=== PATIENT | male | born 1955 | race Caucasian/White ===

== ENCOUNTER 2024-12-27 22:31 | Inpatient (IN) | payer OTHER, SELFPAY ==
[2024-12-27] VITALS (7 sets, daily range): BP systolic 94–146; BP diastolic 62–99; BMI 24.2
--- NOTE | 2024-12-27 20:36 | ED.GENMED ---
History of Present Illness
General
Chief Complaint: Chest Pain
Source: patient and family
Time Seen by Provider: 12/27/24 20:36
History of Present Illness
History of Present Illness:
69-year-old male with a history of hypercholesterolemia presents emergency department after developing pain across his lower chest and 6 PM described as 'heartburn'. Pain has been constant despite taking baking soda at home. He denies having this
pain before. The pain is without radiation, exacerbating, relieving factors. He denies radiation or pain in his back neck jaw head or upper chest. He denies dyspnea, diaphoresis, nausea, vomiting, leg swelling. Patient denies prior history of
coronary disease
Past History
Past History
ED Past Medical History: Hypercholesterolemia and Other (Prostate cancer)
ED Past Surgical History: Urological
Social History
Tobacco: Smoker
Alcohol: None
Drug: None
Personal:
Living: with family
Phy Exam
Physical Exam
Physical Exam:
GENERAL: Alert , in no apparent distress
EYE: pupils equal and reactive
NECK: Supple, no significant adenopathy.
ENT: o/p clr, mmm.
CARDIAC: Regular rate and rhythm .
LUNGS: Clear breath sounds bilaterally, no acute respiratory distress, no wheezes/rales/rhonchi
ABDOMEN: Soft, without focal tenderness, no r/g, no cvat
NEUROLOGICAL: Alert and oriented, no focal neuro deficits
SKIN: Warm and dry, skin intact.
MUSCULOSKELETAL: No edema, well perfused.
PSYCH: Normal and appropriate interaction.
Scores
Heart Score for Chest Pain Patients
STEMI patient?: Yes
Course
Orders/Labs/Results
Orders:
Orders
12/27/24 20:15
Electrocardiogram (*1) Urgent
Reason for Study: Chest Pain
EKG- Treatment ONCE
12/27/24 20:35
Basic Metabolic Panel Urgent
Complete Blood Count/With Diff Urgent
PT/INR [Prothrombin Time] Urgent
Troponin I Urgent
12/27/24 20:38
Nitroglycerin Sublingual [Nitrostat (Sublingual)] 0.4 mg SL NOW STA
12/27/24 20:49
Nitroglycerin Sublingual [Nitrostat (Sublingual)] 0.4 mg SL NOW STA
12/27/24 21:06
Aspirin Chewable [Low Strength Aspirin] 324 mg .ROUTE .STK-MED ONE
Heparin 5,000 units .ROUTE .STK-MED ONE
Ticagrelor [Brilinta] 180 mg .ROUTE .STK-MED ONE
12/27/24 22:20
Admit Patient As Directed
Co-Sign Provider:
Level of Care: Inpatient admission
Assign to:: IVU
Physician / Group: Aaron
Diagnosis: STEMI
Reason for Hospitalization: STEMI
Expected length of stay greater than two midnights?: No
ELOS- Estimated Length of Stay in days: 2
I certify the patient meets the requirements for IP care: Yes
Electrocardiogram (*1) Urgent
Reason for Study: Other
Other Reason for Exam: s/p intervention
Code Status As Directed
Resuscitation Status: Full Code
CARDIAC REHAB CONSULT Routine
Co-Sign Provider:
Cardiac Rehab & Exercise Evaluation Referral
Type of Cardiac Rehab Referral: Outpatient
Diagnosis: STEMI
Date of Diagnosis/Surgery: 12/27
Referring Provider: Other Provider
Other Referring Provider: Aaron
[facility] Intensive Cardiac Rehab Exercise Prescription
The above named person is capable of participating in an intensive cardiac rehab exercise therapy program
under the guidance of the [facility] cardiac rehab staff, outpatient registered dieticians and
supervision of a physician.
ICR Program Objectives:
Provide supervised exercise, cooking classes, nutritional counseling and healthy mind-set education to
improve the function/symptom free work capacity to an optimal level as well as control risk factors to
prevent the progression of heart disease. During the supervised exercise therapy session some or all of
the following may be included in the cardiac rehab session: ECG telemetry, BP, heart rate, rate of
perceived exertion, symptoms/tolerance, cholesterol testing and education. Exercise modalities may
include: treadmill, upright or recumbent bike, spin bike, rowing machine, elliptical, recumbent
elliptical, arm-bike machine, recumbent stepper and free weights.
Intensity:
All CR staff will use ACSM guidelines: Most patients will exercise in the following range: Heart Rate
[place] range of 40% to 80% & Oxygen Uptake reserve range 40-80% (VO2R). Peak heart rate and VO2 are
derived from the cardiac rehab submaximal graded exercise test at RPE of 13/14 out of 20. Initial
intensity range: RPE 11 to 14/20 and may expand to 11 to 16/20.
Duration & Frequency:
If appropriate the patient will be progressed up to 40 minutes of exercise therapy. Patients will be
instructed to come three times a week in cardiac rehab and at a home/other gym to achieve optimal
physical activity/exercies i.e. 4000-10,000 steps per day.
Education:
The patient will receive one-on-one education during their orientation, initial exercise evaluation, ITP
reassessments and discharge session. Each exercise session will also include an education class (30-40
minutes).
Acetaminophen [Tylenol] 650 mg PO Q4HPRN PRN
Activity As Directed
Activity Level: Out of Bed- Chair
Comment: bed/chair rest for 2 hours then out of bed ad abhi
Eeo Officer Procedure As Directed
Cardiac Cath Procedure: percutaneous coronary intervention
Intake/ Output As Directed
Frequency: Per unit guidelines
Notify MD As Directed
Notify physician if: immediately for chest pain or bleeding from access site(s)
Radial Artery Hemostasis Method As Directed
Instructions:: 3 mL out at 2 hour posts placement of band
3 mL out at 2 1/2 hours post placement of band
3 mL out at 3 hours post placement of band
Off at 3 1/2 hours post placement of band
If any oozing or hemotoma occurs:: re-inflate band and call provider
Site Checks As Directed
Check access site for bleeding/hematoma: Yes
Comment: on arrival, Q15min x4, Q30min x2, Q1 hr x2, Q2 hr x2, Q4 hr or per
protocol
Vascular Checks As Directed
Location: distal to access site - pulse check
Frequency: Other
Comment: on arrival, Q15min x4, Q30min x2, Q1 hr x2, Q2 hr x2, Q4 hr or per protocol
Vital Signs As Directed
Frequency: Other
Additional Instructions:: on arrival, Q15min x4, Q30min x2, Q1 hr x2, Q2 hr x2, then Q4 hr or per unit
protocol
PRN Pain Medication Management As Directed
May give lesser potent ordered pain med per pt: Yes
preference::
Protocol:: Medication orders for pain may be administered in a
manner that supports deferring to patient preference
when the pt is:
- Requesting an ordered lesser potent pain medication.
Least to most potent pain medications are defined
as: acetaminophen < NSAID < tramadol < opioids
(morphine, oxycodone, hydromorphone).
- Requesting a lesser dose of the same medication IF
ORDERED.
- Requesting a less intrusive route of administration
if both routes are prescribed by the provider (PO <
IV).
12/27/24 22:21
Glycohemoglobin (HgbA1c) Routine
DX Deep Vein Thrombosis Video Routine
12/27/24 22:30
0.9% Sodium Chloride 1000 ml [Nss] 1,000 ml IV PER PROTOCOL
Infusion rate in mL/kg/hr:: 1.5
Infusion rate in mL/hr:: 118
Duration of infusion (hours):: 5
12/27/24 23:00
Atorvastatin [Lipitor] 40 mg PO QPM
Metoprolol Xl [Toprol Xl] 12.5 mg PO BID
12/28/24 02:28
Basic Metabolic Panel IN AM
Cardiovascular Evaluation IN AM
Complete Blood Count/With Diff IN AM
Troponin I Q6H
12/28/24 06:00
Electrocardiogram (*1) IN AM
Reason for Study: Other
Other Reason for Exam: s/p intervention
Cholesterol Lowering
At Your Request: Full Participation
Does patient need a safe tray?: No
Cholesterol Lowering: Sodium, 2 Gram
12/28/24 08:00
Aspirin Chewable [Low Strength Aspirin] 81 mg PO DAILY
Lisinopril [Zestril] 5 mg PO DAILY
Ticagrelor [Brilinta] 90 mg PO BID
12/28/24 18:00
Enoxaparin Sodium [Lovenox] 40 mg SC QPM
Abnormal Lab Results
12/27/24 12/27/24 12/27/24
20:35 21:15 21:41
RBC 4.55 L 10^6/uL
(4.70-6.10)
MCH 32.1 H pg
(27.0-31.0)
Absolute Monos (auto) 0.7 H 10^3/uL
(0.1-0.6)
Chloride 108 H mmol/L
(98-107)
BUN 32 H mg/dl
(9-20)
Glucose 154 H mg/dl
(70-99)
POC ACT Low Range 380 H Seconds 274 H Seconds
(116-155) (116-155)
12/27/24 20:35
12/27/24 20:35
Vital Signs
Initial and Last Documented VS:
Initial Vital Signs
Pulse Resp BP Pulse Ox
82 20 146/99 97
12/27/24 20:23 12/27/24 20:23 12/27/24 20:23 12/27/24 20:23
Last Documented Vital Signs
Temp Pulse Resp BP Pulse Ox
99.0 F 75 17 93/65 96
12/29/24 11:42 12/29/24 11:45 12/29/24 11:42 12/29/24 11:34 12/29/24 11:42
*Pulse Oximetry
SaO2: 97
Oxygen Mode of Delivery: Room air
Patient hypoxic: no
*Critical Care Note
Total Time (30-74mins, 75-104mins- exclusive of procedures): Not Applicable
Update Note
Update Note:
Patient presents to the Emergency Department with ___chest pain
Number and Complexity of Problems Addressed at the Encounter
� Chronic conditions affecting care:
� Acute Exacerbation and/or Progression of Chronic Illness:
� Differential Diagnosis includes: But not limited to MT, ACS, pleurisy, musculoskeletal pain, gallbladder disease, PTX, etc. etc.
Amount and/or Complexity of Data to be Reviewed and Analyzed
� I performed an independent evaluation of and my interpretation is:
EKG: Read by me, ST elevation noted in inferior leads, normal sinus rhythm
CT:
Xrays:
Laboratory Studies: Pending at time of disposition
Other:
� Review of other/old records reveals:
� Clinical information was obtained by an independent historian: and daughter who are at bedside
� Prescriptions/Medications Considered but not given:
� Further testing considered but not performed:
Risk of Complications and/or Morbidity or Mortality of Patient Management
� Social determinants of health affecting care:
� Discussion with other providers (PCP, Hospitalists, Consultants, etc):
� Escalation of care including admission/observation vs risk of discharge considered: Patient presented to ED from triage. Triage nurse alerted me promptly as patient was brought to room 40, I then internal controls analyst had distance learning unit leader called a
STEMI alert and proceeded to care for the patient. Case just discussed with Dr. Wallis, ECG shared with him. He agrees with management thus far, no further recommendations, will be bedside within the next 10 minutes. Patient and family updated.
Patient has gotten nitro x 1 without change in 5 out of 10 pain. RN to give second dose of nitro, blood pressure remained stable, IV fluids hanging
ED Attending Note
-
Portions of this chart may have been created with voice recognition software.� Occasional wrong word or��sound alike� substitutions may have occurred due to the inherent limitations of voice recognition software.
Discharge Plan
Departure
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
Date of Disposition: 12/27/24
Time of Disposition: 20:36
Admit to: geophysical laboratory supervisor
Admit to doctor: aaron
Presentation/result/management discussed w/ accepting MD/DO: aaron
Discharge Problem:
ST elevation (STEMI) myocardial infarction
Interventions
Interventions:
*Risk Screen - Suicide Last Done: 12/27/24 20:23
*General Assessment Last Done: 12/27/24 20:23
*Neglect/Abuse Screening Last Done: 12/27/24 20:23
*ED- Fall Risk Assessment Last Done: 12/27/24 20:32
*ED COVID-19 Vaccine History Last Done: 12/27/24 20:32
*Nursing Disposition Last Done: 12/27/24 20:51
ED- Cardiac Assessment Last Done: 12/27/24 20:41
Discharge Date and Time
Discharge Date/Time: 12/27/24 20:51
[2024-12-27] MEDS: NITROSTAT (SUBLINGUAL) 0.4 MG SL (20:38)
[2024-12-27 20:45] LABS: Hematocrit 40.9 % (39.0-52.0); Hemoglobin 14.6 g/dL (13.0-18.0); Mean Corp Hgb Conc. 35.7 g/dL (33.0-37.0); Mean Corpuscular Volume 89.9 fL (80.0-94.0); Nucleated Red Blood Cells % 0 % (-); Platelet Count 229 10^3/uL (130-400); Red Cell Dist. Width 12.6 % (11.5-14.5)
[2024-12-27 20:54] LABS: INR 0.96; PT 13.1 Sec (11.4-14.6)
[2024-12-27 21:02] LABS: Blood Urea Nitrogen 32 mg/dl (9-20); Calcium 9.0 mg/dl (8.4-10.2); Carbon Dioxide 25 mmol/L (22-30); Chloride 108 mmol/L (98-107); Estimated Creatinine Clearance 108 ml/min; Glucose 154 mg/dl (70-99); Sodium 138 mmol/L (135-145); eGFR > 60.00
[2024-12-27 21:09] LABS: Troponin I < 0.012 ng/ml
[2024-12-27 21:22] LABS: ACT-LR - POC 380 Seconds (116-155)
[2024-12-27 21:49] LABS: ACT-LR - POC 274 Seconds (116-155)
--- NOTE | 2024-12-27 22:20 | ITS.CL.PN ---
Strategic Planning Director - Procedure Note
Procedure
Procedure Note:
CARDIAC CATHETERIZATION REPORT
Date of Procedure: 12/28/2019
Referring: Dr. Maribeth Joseph MD
Indication: Inferior STEMI
PROCEDURE(S)
1. left heart catheterization
2. coronary angiography
3. IVUS LCx
4. PCI with DONG to LCx
ACCESS: 6F right radial artery (closure: radial band)
CATHETERS
1. 6F JR4
2. 6F EBU3.75 guide
MODERATE SEDATION: 6 minutes of moderate sedation was utilized. An independent faculty i on call medical assistant was present to assist with and help manage the patient's level of consciousness and physiologic status.
HEMODYNAMIC DATA
LV 113/9 (EDP 19) mmHg
AO 111/77 (mean 88) mmHg
CORONARY ANGIOGRAPHY
Dominance: Right
LM: Large, normal
LAD: Large vessel giving rise to a large branching D1, small D2, and small D3. There is a focal 50% stenosis at the ostium of D1 and otherwise mild nonobstructive disease.
LCx: Large vessel giving rise to a small OM1, large OM2, and moderate caliber branching LPL. There is a focal 50% stenosis in the mid LCx just after OM2, a sequential 90% stenosis in the mid LCx, and a subtotal occlusion of the LPL branch just
before its branch. There is VERN I flow in the distal LPL branch.
RCA: Large vessel giving rise to a large RPDA, large RPL1, and small RPL2. The vessel is patulous with diffuse but nonobstructive disease throughout the proximal vessel.
PCI with DONG to LCx
Heparin was given to achieve ACT greater than 300. A Runthrough coronary wire was placed in the distal left posterolateral branch. Initial lesion preparation was performed with a 2.0 mm semicompliant balloon with alevism of distal flow. Stenting
was performed with a 2.25 x 23 mm Xience Skypoint DONG from the branch point of the LPL back into the mid circumflex covering the high-grade circumflex lesion. IVUS was performed demonstrating slight protrusion of the distal stent edge into the wired
branch but no evidence of vessel dissection. The mid circumflex itself was a 2.75 mm vessel. Thus, post dilation was performed of the entire stent sparing the distal edge with a 2.75 mm NC balloon taken to 16 leslye distally and 17 leslye in the proximal
stent edge. At this point the lesion just distal to the takeoff of the large OM2 appeared angiographically more severe and the decision was made to cover this with an overlapping 2.75 x 12 Xience Skypoint DONG deployed at 16 leslye followed by post
dilation of the stent overlap back to the proximal stent edge with the 2.75 mm NC balloon at 17 leslye. Final IVUS was performed demonstrating appropriate stent sizing, apposition, and expansion, with slight protrusion of the proximal stent edge into
the proximal circumflex by 1-2 apple. The stent at this proximal edge was mildly undersized but apposed to plaque thus no further postdilation was performed. Final angiographic result was outstanding with VERN-3 flow in all distal branches. The wire
and guide were removed and a TR band placed.
RADIATION: dose 1362 mGy; DAP 100 Gy*cm2; fluoroscopy time 20.9 min
CONCLUSIONS
1. Coronary artery disease as described with culprit subtotal occlusion of the LPL.
2. Mildly elevated LV filling pressure and no aortic stenosis
3. Successful PCI with DONG x 2 to the LPL back to mid circumflex.
RECOMMENDATIONS
1. Dual antiplatelet therapy with aspirin and ticagrelor for 1 year
2. High intensity statin and additional lipid-lowering therapies to achieve LDL less than 55
3. Beta-torie titrated to heart rate goal 60-70
4. Low dose ACEi in AM as tolerate by BP
5. Trend troponin to peak, check lipids, check A1c
6. TTE in AM, additional GDMT as indicated though doubt significant LV dysfunction
7. Smoking cessation and optimization of lifestyle and risk factor modification
8. Cardiac rehab
Signed: Sai Walker MD, PhD
--- NOTE | 2024-12-27 22:25 | CON.CAR ---
Consultation
Consultation Request
Date/Time Consultation Requested: 12/27/24 9 PM
Date/Time Consultation Performed: 12/27/24 9 PM
Requesting Provider: Dr. Maribeth Joseph
Performing Provider: Dr. Stalin Walker
Reason for Consultation: STEMI
Medical History
-
Chief Complaint: STEMI
History of Present Illness:
69-year-old male with a history of hypercholesterolemia presents emergency department after developing pain across his lower chest and 6 PM described as 'heartburn'. Pain has been constant despite taking baking soda at home. He denies having this
pain before. The pain is without radiation, exacerbating, relieving factors. He denies radiation or pain in his back neck jaw head or upper chest. He denies dyspnea, diaphoresis, nausea, vomiting, leg swelling. Patient denies prior history of
coronary disease.
Presented on own to triage where ECG demonstrated inferior MARISEL.
He was treated with ASA 325, ticagrelor 180, heparin bolus. SL nitro x2 was given without resolution of pain.
Past Medical History
Past Medical History: Hypercholesterolemia
Past Surgical History: None
Social History
Tobacco: Smoker
Alcohol: Occasional
Allergies / Home Medications
Allergy/AdvReac Type Severity Reaction Status Date / Time
No Known Allergies Allergy Unverified 12/27/24 20:18
Review of Systems
-
History Source: Patient
All other systems: Negative unless noted
Cardiac: Chest Pain
Physical Exam
Vital Signs
Temp Pulse Resp BP Pulse Ox
37.3 C 83 20 112/84 95
12/27/24 20:34 12/27/24 20:45 12/27/24 20:23 12/27/24 20:45 12/27/24 20:45
Lab Results
12/27/24 20:35
12/27/24 20:35
Troponin I < 0.012 ng/ml 12/27/24 20:35
Physical Exam
General: Well Developed and Well Nourished
HEENT: Normocephalic
Respiratory: Clear
Cardiac: S1/S2 and Regular Rhythm
Skin: Warm
Neuro: AO x 3
Psych: Other (uncomfortable)
Impression / Plan
-
Patient presents with symptoms and ECG change consistent with inferior STEMI. He has risk factors including smoking and HLD. Fortunately presented rapidly within 2 hours onset of symptoms. Appears hemodynamically stable though uncomfortable. Will
proceed with emergent cardiac catherization and PCI as indicated. Appropraite pre-medication (ASA, ticag, heparin) given in the ED. Further recs to follow in cath report.
Data Reviewed
-
EKG: Tracing Personally Visualized and interpreted, Report Reviewed by me, Discussed with Physician, Discussed with Nurse, Discussed with Patient and Discussed with Family
Labs: Labs Reviewed by me, Discussed with Physician, Discussed with Nurse, Discussed with Patient and Discussed with Family
Critical Care Time (in minutes): 35
[2024-12-27] MEDS: TOPROL XL 12.5 MG PO (22:59)
[2024-12-27] MEDS: LIPITOR 40 MG PO (22:59)
--- NOTE | 2024-12-27 23:12 | PTCARENOTE ---
Received patient from labor employment associate. SR on the monitor, HR in the 70s. R radial band in place, R hand pulse ox 96%, R radial pulse intact. No chest pain at this time. Admission assessment completed, oriented pt to room. Educated patient on activity
restrictions and plan of care, pt verbalizes understanding. No complaints from pt at this time, call patel within reach.
[2024-12-28] VITALS (10 sets, daily range): BP systolic 83–130; BP diastolic 59–82; BMI 24.2
[2024-12-28 02:38] LABS: Hematocrit 37.1 % (39.0-52.0); Hemoglobin 12.9 g/dL (13.0-18.0); Mean Corp Hgb Conc. 34.8 g/dL (33.0-37.0); Mean Corpuscular Volume 92.8 fL (80.0-94.0); Nucleated Red Blood Cells % 0 % (-); Platelet Count 210 10^3/uL (130-400); Red Cell Dist. Width 12.5 % (11.5-14.5)
[2024-12-28 03:13] LABS: Troponin I 52.400 ng/ml
[2024-12-28 03:31] LABS: Blood Urea Nitrogen 25 mg/dl (9-20); Calcium 8.7 mg/dl (8.4-10.2); Carbon Dioxide 24 mmol/L (22-30); Chloride 111 mmol/L (98-107); Estimated Creatinine Clearance 108 ml/min; Glucose 125 mg/dl (70-99); HDL Cholesterol 36 mg/dl; LDL Cholesterol, Calculated 38 mg/dl; Potassium 4.0 mmol/L (3.5-5.1); Sodium 140 mmol/L (135-145); Very Low Density Lipoprotein 33 mg/dl (0-30); eGFR > 60.00
[2024-12-28] MEDS: TOPROL XL 12.5 MG PO ×2 (08:20→19:18)
[2024-12-28] MEDS: LOW STRENGTH ASPIRIN 81 MG PO (08:21)
[2024-12-28] MEDS: ZESTRIL 5 MG PO (08:21)
[2024-12-28] MEDS: BRILINTA 90 MG PO ×2 (08:21→19:18)
--- NOTE | 2024-12-28 09:47 | W.PN.CD ---
Addendum entered and electronically signed by Winston Kinsey MD 12/28/24 11:32:
I saw and examined the patient.
The CASING FINISHER AND STUFFER's note was reviewed and I agree with the note.
Comment: Tele with a few short runs of NSVT and some AIVR (all within 12-24 hrs of ND). Feels well. Anticipate home in 24-48 hrs depending on his progress. We will trend trop to peak. So far 2 trop less 0.012 and second 52.4. Anticipate echo
next week.
Original Note:
Today's Communication / Plan
-
continue medical therapy and trend troponin to peak.
Impression / Plan
-
Inferior STEMI - acute/threat to life.
- s/p cath 12/27/24 showed focal 50% stenosis in the mid LCx just after OM2, a sequential 90% stenosis in the mid LCx, and a culprit subtotal occlusion of the LPL branch, there is VERN I flow in the distal LPL branch.
- s/p DONG x 2 to the LPL back to the mid circumflex.
- DAPT with ASA and Brilinta for 1 year, then ASA monotherapy indefinitely.
- high intensity statin to achieve LDL < 55, now on Lipitor 40mg,.
- continue Toprol, Lisinopril, Lipitor.
- trend troponin to peak, initial troponin < 0.012, then 52.4.
- hbgA1c, pending
- check echo, GDMT if applicable.
- EKG NSR today and he denies any cardiac symptoms.
HLD - on Lipitor 10mg daily as outpatient.
- lipid profile LDL 38, HDL 36, TC 107, TG 166
- Goal LDL < 55, goal triglycerides < 150.
Tobacco abuse - smoking cessation reviewed with patient.
GERD - stable on PPI, continue.
Physical Exam
Vital Signs/Labs
Vital Signs
Temp Pulse Resp BP Pulse Ox
98.6 F 74 18 100/71 96
12/28/24 08:15 12/28/24 08:45 12/28/24 08:15 12/28/24 08:20 12/28/24 07:49
12/27/24 12/28/24 12/29/24
06:59 06:59 06:59
Actual Weight 173 lb 11.588 oz
12/28/24 02:28
12/28/24 02:28
PT 13.1 Sec (11.4-14.6) 12/27/24 20:35
INR 0.96 12/27/24 20:35
Triglycerides 166 mg/dl (10-149) H 12/28/24 02:28
LDL Cholesterol, Calc 38 mg/dl 12/28/24 02:28
VLDL Cholesterol, Calc 33 mg/dl (0-30) H 12/28/24 02:28
HDL Cholesterol 36 mg/dl 12/28/24 02:28
LAB Results
12/27/24 12/27/24 12/28/24
20:35 22:30 02:28
Troponin I < 0.012 Cancelled 52.400 H* D
Physical Exam
Constitutional: No acute distress
EENT: Anicteric and Moist mucous membranes
Cardiovascular: Rhythm & rate is regular and Pedal edema is absent
Respiratory: Respiratory effort normal and Lungs clear to auscul.
GI: Soft, Non tender and Normal bowel sounds
Neuro/Psych: AO x 3
Other: Cath Site (right radial site healed, no hematoma/bruit)
Data Reviewed
-
Date of Service: December 28, 2024
Medical Decision Making: Reviewed Test Results
EKG: Tracing Personally Visualized and interpreted
Labs: Labs Reviewed by me
[2024-12-28 10:30] LABS: Glycohemoglobin (HgbA1c) 6.0 % (4.0-5.6)
[2024-12-28 13:22] LABS: Troponin I 18.500 ng/ml
--- NOTE | 2024-12-28 16:12 | PTCARENOTE ---
Discussed troponin levels with pt and pt's spouse. Pt denies any chest pain. Orders noted. Will monitor.
[2024-12-28] MEDS: LIPITOR 40 MG PO (16:51)
--- NOTE | 2024-12-28 20:00 | PTCARENOTE ---
Received patient at change of shift. SR on the monitor, HR in the 70s. R radial dressing CDI. No chest pain. No complaints from pt at this time, call patel within reach.
[2024-12-29 02:36] VITALS: BP 89/68
[2024-12-29 06:56] VITALS: BP 95/70
[2024-12-29] MEDS: BRILINTA 90 MG PO (08:46)
[2024-12-29] MEDS: LOW STRENGTH ASPIRIN 81 MG PO (08:46)
[2024-12-29 08:52] VITALS: BP 85/72
[2024-12-29 08:53] VITALS: BP 93/65
[2024-12-29 11:00] VITALS: BP 94/73
[2024-12-29] MEDS: ZESTRIL PO (11:34)
[2024-12-29] MEDS: TOPROL XL PO (11:34)
--- NOTE | 2024-12-29 11:49 | W.DS.TRANS ---
DC Summary - Operations Recruiter
-
Discharge Instructions:
Discharge Diagnosis/Procedures inferior STEMI
Diet Low Cholesterol,2 Gram Sodium
Activity No strenuous activity
Additional Activity see activity instructions, no lifting more than
10 lbs for 1 week
Driving Restrictions As prior to admission
Bathing Restrictions None
Others Tests outpatient echo, cardiology office will contact
you for an appointment
Instructions:
Stand-Alone Forms: DC Inst - Same Day PCI
Changes to Home Medications: Yes
Discharge Medications:
DC Medications w/original date entered in [employer]
aspirin 81 mg capsule 81 mg PO DAILY Blood Clot Prevention/Tx 12/27/24
omeprazole 40 mg capsule,delayed release 40 mg PO DAILY GERD 12/27/24
acetaminophen 325 mg tablet 650 mg (2 x 325 mg) PO Q4HPRN PRN mild pain #30 tabs 12/28/24
atorvastatin 40 mg tablet 40 mg PO QPM #30 tabs 12/28/24
nitroglycerin 0.4 mg sublingual tablet (Nitrostat) 0.4 mg sublingual Q5M PRN chest pain #25 tabs 12/28/24
ticagrelor 90 mg tablet (Brilinta) 90 mg PO BID #60 tabs 12/28/24
lisinopril 2.5 mg tablet 2.5 mg PO DAILY #90 tabs 12/29/24
metoprolol succinate 25 mg tablet,extended release 24 hr 12.5 mg (1/2 x 25 mg) PO DAILY #45 tabs 12/29/24
Home Medication Changes
Stop meloxicam
Increasing atorvastatin
Pending Results: No
--- NOTE | 2024-12-29 11:51 | W.PN.UPDATE ---
Update Note
Progress Note Update
Patient seen and examined.
No VT in last 24 hrs
BP a bit soft => decrease BB and GEOFF-I, he will monitor BP twice a week for next 2 months
F/u arranged
Reviewed importance of med adherence.
Home today.
--- NOTE | 2024-12-29 13:19 | PTCARENOTE ---
Discussed pt's diagnosis and post cath plan of care. Reviewed discharge orders w/ pt and pt's spouse. Pt and spouse verbalized understanding of above.
== END 2024-12-29 13:32 | disposition home or self-care (01) | DRG 322 ==
LOC: IVU 22:31
PROVIDERS: ADMITTING PHYSICIAN Student in an Organized Health Care Education/Training Program; EMERGENCY PHYSICIAN Emergency Medicine
PROC: 4A023N7 Measurement of Cardiac Sampling and Pressure, Left Heart, Percutaneous Approach (ICD-10-PCS; 2024-12-27)
PROC: 027035Z Dilation of Coronary Artery, One Artery with Two Drug-eluting Intraluminal Devices, Percutaneous Approach (ICD-10-PCS; 2024-12-27)
PROC: B2111ZZ Fluoroscopy of Multiple Coronary Arteries using Low Osmolar Contrast (ICD-10-PCS; 2024-12-27)
PROC: B240ZZ3 Ultrasonography of Single Coronary Artery, Intravascular (ICD-10-PCS; 2024-12-27)
DX: I21.19 ST elevation (STEMI) myocardial infarction involving other coronary artery of inferior wall (principal); I47.20 Ventricular tachycardia, unspecified; I49.8 Other specified cardiac arrhythmias; I25.10 Atherosclerotic heart disease of native coronary artery without angina pectoris; E78.00 Pure hypercholesterolemia, unspecified; K21.9 Gastro-esophageal reflux disease without esophagitis; F17.200 Nicotine dependence, unspecified, uncomplicated
CPT/HCPCS: 80048; 80061; 83036; 84484; 85025; 85347; 85610; 92978; 93005; 93458; 99284; C1725; C1753; C1769; C1874; C1894; C9606; J1327; Q9967

== ENCOUNTER → 2025-01-02 09:51 | Outpatient (REF) | payer OTHER, SELFPAY | LOC: HWRCS 09:51 | PROVIDERS: ATTENDING PHYSICIAN Student in an Organized Health Care Education/Training Program; FAMILY PHYSICIAN Internal Medicine | DX: I25.10 Atherosclerotic heart disease of native coronary artery without angina pectoris (principal) | CPT/HCPCS: 93306 ==

== ENCOUNTER 2025-01-06 18:44 | Emergency (ER) | payer OTHER, SELFPAY ==
[2025-01-06 18:59] VITALS: BP 112/75
[2025-01-06 20:26] VITALS: BP 103/74
[2025-01-06 20:28] VITALS: BMI 24.1
--- NOTE | 2025-01-06 20:46 | ED.GENMED ---
History of Present Illness
General
Chief Complaint: Male Genito-Urinary Symptoms
Source: patient and family
Exam Limitations: none
Time Seen by Provider: 01/06/25 20:17
Nursing documentation reviewed up to this point in time: agreed with
History of Present Illness
History of Present Illness:
Patient with history of prostate cancer, with last radiation therapy 8 years ago, presents to ED secondary to difficulty with urination despite urge since 3:00 this afternoon. Denies fever or chills. Denies nausea or vomiting. Denies trauma.
Patient had 1 similar episode 1 year ago, which resolved spontaneously. Of note, patient was admitted to the hospital 1 week ago secondary to RI, and he is currently taking aspirin and Brilinta.
Past History
Past History
ED Past Medical History: Hypercholesterolemia and Other (Prostate cancer)
ED Past Surgical History: Urological
Social History
Tobacco: Smoker
Alcohol: None
Drug: None
Personal:
Living: with family
Review of Systems
Review of Systems
Allergies reviewed?: Yes
All Other Systems: ROS reviewed and negative except as documented in HPI and ROS
Constitutional: Reports no symptoms
ABD/GI: Reports no symptoms; Denies abdominal pain or vomiting
: Reports difficulty voiding and bleeding
Musculoskeletal: Reports no symptoms
Skin: Reports no symptoms
Neurological: Reports no symptoms
Phy Exam
Physical Exam
Physical Exam:
Physical Exam
General: no apparent distress, not acutely ill. afebrile
Head: nc/at. eomi
Neck: supple. normal range of motion.
Abdomen: normal bowel sounds. not tender.
Neuro: alert and oriented x 3. no focal neurological deficits
Skin: no rash
Psychiatric: well kept. interactive and cooperative
Extremities: no edema. no calf tenderness.
Course
Orders/Labs/Results
Orders:
Orders
01/06/25 19:55
Bladder Scan- Treatment ONCE
Vital Signs
Initial and Last Documented VS:
Initial Vital Signs
Temp Pulse Resp BP Pulse Ox
98.3 F 102 18 112/75 98
01/06/25 18:59 01/06/25 18:59 01/06/25 18:59 01/06/25 18:59 01/06/25 18:59
Last Documented Vital Signs
Temp Pulse Resp BP Pulse Ox
98.3 F 80 16 103/74 98
01/06/25 18:59 01/06/25 20:26 01/06/25 20:26 01/06/25 20:26 01/06/25 20:48
MDM/Problems Addressed
MDM/Problems Addressed:
In ED, patient able to void completely, with passage of large amount of clots. Postvoid bladder scan reveals 0 mL of urine.
Discussed with oncall urology, , who does not recommend polanco catheter at this time. 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 Recommends continue fluid administration as outpatient, limited straining
activities along with outpatient f/u, with return precautions, i.e. retention.
Pt and family expressed understanding at time of discharge.
*Pulse Oximetry
SaO2: 98
Oxygen Mode of Delivery: Room air
Patient hypoxic: no
*Critical Care Note
Total Time (30-74mins, 75-104mins- exclusive of procedures): Not Applicable
ED Attending Note
-
Portions of this chart may have been created with voice recognition software.� Occasional wrong word or��sound alike� substitutions may have occurred due to the inherent limitations of voice recognition software.
Discharge Plan
Departure
Patient Disposition: Home (Routine Discharge)
Date of Disposition: 01/06/25
Time of Disposition: 21:01
Patient with high blood pressure during this ER visit?: No
Condition: Fair
Discharge Problem:
Acute urinary retention
Instructions: Urinary Retention (DC)
Prescriptions:
No Action
aspirin 81 mg Capsule
81 mg PO DAILY
omeprazole 40 mg Capsule,Delayed Release(Dr/Ec)
40 mg PO DAILY
ticagrelor [Brilinta] 90 mg Tablet
90 mg PO BID Qty: 60 3RF
atorvastatin 40 mg Tablet
40 mg PO QPM Qty: 30 3RF
acetaminophen 325 mg Tablet
650 mg PO Q4HPRN PRN (Reason: mild pain) Qty: 30 0RF
nitroglycerin [Nitrostat] 0.4 mg tablet, sublingual
0.4 mg sublingual Q5M MDD 3 PRN (Reason: chest pain) Qty: 25 0RF
lisinopril 2.5 mg tablet
2.5 mg PO DAILY Qty: 90 0RF
Rx Instructions:
Take in the morning
metoprolol succinate 25 mg tablet extended release 24 hr
12.5 mg PO DAILY Qty: 45 0RF
Rx Instructions:
Take at night
Referrals:
Carroll Cartwright MD [Active, Urology]
Activity Restrictions/Additional Instructions:
As discussed, please follow-up with your oncologist and/or referral to urologist for further evaluation and treatment.
Interventions
Interventions:
*Risk Screen - Suicide Last Done: 01/06/25 18:59
*General Assessment Last Done: 01/06/25 20:26
*Neglect/Abuse Screening Last Done: 01/06/25 18:59
*ED- Fall Risk Assessment Last Done: 01/06/25 20:26
*ED COVID-19 Vaccine History Last Done: 01/06/25 20:26
*Nursing Disposition Last Done: 01/06/25 21:05
ED-Male Genitourinary Assessment Last Done: 01/06/25 20:30
Discharge Date and Time
Discharge Date/Time: 01/06/25 21:06
Print Language: UGANDAN
== END 2025-01-06 21:06 | disposition home or self-care (01) ==
LOC: EMR 18:44
PROVIDERS: EMERGENCY PHYSICIAN Emergency Medicine; FAMILY PHYSICIAN Internal Medicine
DX: R33.9 Retention of urine, unspecified (principal); F17.200 Nicotine dependence, unspecified, uncomplicated; E78.00 Pure hypercholesterolemia, unspecified; Z85.46 Personal history of malignant neoplasm of prostate; Z92.3 Personal history of irradiation; I21.9 Acute myocardial infarction, unspecified; Z79.01 Long term (current) use of anticoagulants; Z79.02 Long term (current) use of antithrombotics/antiplatelets; Z79.82 Long term (current) use of aspirin
CPT/HCPCS: 99282

== ENCOUNTER 2025-03-19 02:54 | Emergency (ER) | payer OTHER, SELFPAY ==
[2025-03-19 03:00] VITALS: BP 137/94
[2025-03-19 05:45] VITALS: BP 124/91
[2025-03-19 06:00] VITALS: BP 125/87
--- NOTE | 2025-03-19 06:30 | ED.GENMED ---
History of Present Illness
General
Chief Complaint: Male Genito-Urinary Symptoms
Source: patient
Time Seen by Provider: 03/19/25 06:04
History of Present Illness
History of Present Illness:
69-year-old male with past medical history of prostate cancer status post prostatectomy, recent myocardial infarction in December of this year presenting to the emergency department for evaluation after he was unable to urinate since 4 PM yesterday
noting significant pressure within the lower part of his abdomen, history of similar a few months ago but states while in the waiting room here at the emergency department he was able to express urine. Patient denies any fevers, chills, rigors,
back or flank pain, nausea or vomiting. He notes that his PSA is being monitored by urology. He does note that he was at the urology office last week for a cystoscopy which showed no cancerous process but did show significant radiation cystitis.
Past History
Past History
ED Past Medical History: Hypercholesterolemia, [place] and Other (Prostate cancer)
ED Past Surgical History: Cardiac, Cholecystectomy and Urological
Social History
Tobacco: Smoker
Alcohol: None
Drug: None
Personal:
Living: with family
Review of Systems
Review of Systems
All Other Systems: ROS reviewed and negative except as documented in HPI and ROS
Phy Exam
Physical Exam
Physical Exam:
GENERAL: Alert , in no apparent distress
EYE: conjunctiva clear
Head: Normocephalic atraumatic
NECK: Supple,
ENT: mmm.
LUNGS: no acute respiratory distress
ABDOMEN: Soft, nontender, nondistended
GENITOURINARY: Joseph catheter in place, greater than 1000 mL blood-tinged urine retained, clear urine within tubing
NEUROLOGICAL: Alert and oriented
SKIN: Warm and dry, skin intact.
MUSCULOSKELETAL: well perfused.
PSYCH: Normal and appropriate interaction.
Scores
Heart Failure Risk
Heart Failure Risk Score: Not Applicable
Heart Score for Chest Pain Patients
STEMI patient?: Not applicable
Withdrawal Assessment of Alcohol
Withdrawal Assessment Completed?: Not applicable
Course
Orders/Labs/Results
Orders:
Orders
03/19/25 03:28
Lidocaine 2% [Lidocaine Uro-Jet 2%] 1 syringe .ROUTE .STK-MED ONE
Vital Signs
Initial and Last Documented VS:
Initial Vital Signs
Temp Pulse Resp BP Pulse Ox
97.8 F 104 22 137/94 98
03/19/25 03:00 03/19/25 03:00 03/19/25 03:00 03/19/25 03:00 03/19/25 03:00
Last Documented Vital Signs
Temp Pulse Resp BP Pulse Ox
97.6 F 104 22 125/87 97
03/19/25 05:47 03/19/25 03:00 03/19/25 03:00 03/19/25 06:00 03/19/25 06:30
MDM/Problems Addressed
Differential Diagnosis Includes:
Radiation Cystitis
UTI
Less concern for malignancy given recent cystoscopy
Stricture
No symptoms to suggest acute pyelonephritis
MDM/Problems Addressed:
69-year-old male presented to the ER for evaluation of acute urinary retention, Joseph catheter placed with greater than 1 L of blood-tinged urine within Joseph bag. Will discuss case with urology. Patient requesting Joseph catheter be removed here.
I did explain to the patient that he may continue to retain urine and need to return to the ER for Joseph catheter placement if unable to continue to void. Patient did express understanding of this.
Chronic conditions affecting care: Cancer
Acute Exacerbation and/or Progression of Chronic Illness: Cancer
*Pulse Oximetry
SaO2: 97
Oxygen Mode of Delivery: Room air
Patient hypoxic: no
*Critical Care Note
Total Time (30-74mins, 75-104mins- exclusive of procedures): Not Applicable
Patient Management
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
Escalation/DeEscalation of care consider admission/obs:
Case discussed with urology, Dr. Atwood, he is okay with us removing the Joseph catheter now, agrees with short term course of antibiotics. Will prescribe Cipro. Patient will call the urology office at 8 AM today to schedule a voiding trial at
the urology office this evening. Patient aware of return precautions to the ER. Stable for discharge home.
ED Attending Note
-
Portions of this chart may have been created with voice recognition software.� Occasional wrong word or��sound alike� substitutions may have occurred due to the inherent limitations of voice recognition software.
Discharge Plan
Departure
Patient Disposition: Home (Routine Discharge)
Date of Disposition: 03/19/25
Time of Disposition: 06:30
Patient with high blood pressure during this ER visit?: Yes
Discharge Problem:
Acute urinary retention
Instructions: Urinary Retention (DC)
Prescriptions:
New
ciprofloxacin HCl [Cipro] 500 mg tablet
500 mg PO BID 5 Days Qty: 10 0RF
No Action
aspirin 81 mg Capsule
81 mg PO DAILY
omeprazole 40 mg Capsule,Delayed Release(Dr/Ec)
40 mg PO DAILY
ticagrelor [Brilinta] 90 mg Tablet
90 mg PO BID Qty: 60 3RF
atorvastatin 40 mg Tablet
40 mg PO QPM Qty: 30 3RF
acetaminophen 325 mg Tablet
650 mg PO Q4HPRN PRN (Reason: mild pain) Qty: 30 0RF
nitroglycerin [Nitrostat] 0.4 mg tablet, sublingual
0.4 mg sublingual Q5M MDD 3 PRN (Reason: chest pain) Qty: 25 0RF
lisinopril 2.5 mg tablet
2.5 mg PO DAILY Qty: 90 0RF
Rx Instructions:
Take in the morning
metoprolol succinate 25 mg tablet extended release 24 hr
12.5 mg PO DAILY Qty: 45 0RF
Rx Instructions:
Take at night
Referrals:
Carroll Cartwright MD [Active, Urology]
Referral Note: Please call office after 8am today to schedule appointment for this evening
UNKNOWN,NO INTERVIEW [Family Provider]
Interventions
Interventions:
*Risk Screen - Suicide Last Done: 03/19/25 03:00
*General Assessment Last Done: 03/19/25 03:00
*Neglect/Abuse Screening Last Done: 03/19/25 03:00
*ED- Fall Risk Assessment Last Done: 03/19/25 03:00
*ED COVID-19 Vaccine History Last Done: 03/19/25 03:00
*ED Influenza Vaccine History Last Done: 03/19/25 04:33
*Nursing Disposition Last Done: 03/19/25 06:52
ED-Male Genitourinary Assessment Last Done: 03/19/25 04:17
Discharge Date and Time
Print Language: BULGARIAN
== END 2025-03-19 06:53 | disposition home or self-care (01) ==
LOC: EMR 02:54
PROVIDERS: EMERGENCY PHYSICIAN Emergency Medicine
DX: R33.9 Retention of urine, unspecified (principal); E78.00 Pure hypercholesterolemia, unspecified; I25.2 Old myocardial infarction; F17.200 Nicotine dependence, unspecified, uncomplicated; Z90.49 Acquired absence of other specified parts of digestive tract; Z85.46 Personal history of malignant neoplasm of prostate; Z90.79 Acquired absence of other genital organ(s)
CPT/HCPCS: 99283; 51702